=== PATIENT | female | born 1940 | race African-American/Black ===

== ENCOUNTER 2016-06-24 17:37 | Emergency (ER) | payer OTHER, MEDICARE ==
[~2016-06-24] VITALS: Ht 160 cm; Wt 63.0 kg
[~2016-06-24 17:37] MED LIST: ACET500T97 PO; ASPI-1035 PO; BENA40TA3 PO; CALC-4 PO; DICL100G5 TP; FERR-63 PO; METO5TAB69 PO; NIFE90TA34 PO; NYST15CR2 TP; OMEP20CA4 PO; PATAODR EACHEYE; PRAV20TA57 PO; TIZA4TAB4 PO
[2016-06-24 17:57] LABS: HEMATOCRIT. 31.8 % (36.0-48.0); HEMOGLOBIN. 10.6 g/dL (12.0-16.0); MEAN CORPUSCULAR HEMOGLOBIN 27.8 pg (28.0-32.0); MEAN CORPUSCULAR HGB CONC 33.3 g/dL (31.0-37.0); MEAN CORPUSCULAR VOLUME 83.6 fL (81.0-99.0); MEAN PLATELET VOLUME 8.5 fl (7.4-10.4); PLATELET 174 x1000/uL (130-400); RED CELL DISTRIBUTION WIDTH 13.7 % (11.6-14.6); WHITE BLOOD COUNT 6.1 x1000/uL (4.5-11.0)
[2016-06-24 17:58] LABS: DIFFERENTIAL COMMENT 1
[2016-06-24 18:07] LABS: ANION GAP 13; CALCIUM 9.2 mg/dL (8.5-10.1); CARBON DIOXIDE 27 mEq/L (21-32); CHLORIDE 105 mEq/L (98-107); INDEX HEMOLYSI 1 (1-3); INDEX ICTERIC 1 (1-4); INDEX LIPEMIC 1 (1-3); UREA NITROGEN BLOOD 19 mg/dL (7-21)
[2016-06-24 18:11] LABS: eGFR > 60 mL/min (>60)
[2016-06-24 18:13] LABS: NT PRO B-TYPE NATRIURETIC PEP 474 pg/mL (5-125); TROPONIN I 0.08 ng/mL (0.00-0.04)
[2016-06-24 18:14] LABS: PROTHROMBIN TIME 10.3 sec
[2016-06-24 18:29] LABS: ANISOCYTOSIS 1+; HYPOCHROMASIA 1+; PLATELET ESTIMATE NORMAL
[2016-06-24 18:42] LABS: CLARITY URINE CLEAR (CLEAR); COLOR URINE YELLOW (YELLOW); GLUCOSE URINE NEGATIVE (NEGATIVE); KETONES URINE NEGATIVE (NEGATIVE); LEUKOCYTE ESTERASE URINE 2+ (NEGATIVE); NITRITE URINE NEGATIVE (NEGATIVE); OCCULT BLOOD URINE 1+ (NEGATIVE); PH URINE 7.5 (4.5-8.0); PROTEIN URINE NEGATIVE (NEGATIVE); SPECIFIC GRAVITY URINE 1.009 (1.005-1.030); UROBILINOGEN URINE 0.2 E.U./dL (0.2-1.0)
[2016-06-24 18:48] LABS: *AMPHETAMINES SCREEN URINE NEGATIVE (NEGATIVE); *BARBITURATES SCREEN URINE NEGATIVE (NEGATIVE); *BENZODIAZEPINES SCREEN URINE NEGATIVE (NEGATIVE); *COCAINE SCREEN URINE NEGATIVE (NEGATIVE); CANNABINOID URINE SCREEN NEGATIVE (NEGATIVE); ECSTASY MDMA SCREEN URINE NEGATIVE (NEGATIVE); METHADONE URINE SCREEN NEGATIVE (NEGATIVE); OPIATES URINE SCREEN NEGATIVE (NEGATIVE); PHENCYCLIDINE URINE SCREEN NEGATIVE (NEGATIVE)
[2016-06-24 19:00] LABS: BACTERIA URINE 1+; SQUAMOUS EPITHELIAL CELL URINE RARE /lpf (RARE/1+)
[2016-06-24 19:01] LABS: RBC URINE 0-2 /hpf (0-2); WBC URINE 15-25 /hpf (0-2)
[2016-06-24 19:05] VITALS: BP 160/76
== END 2016-06-24 21:30 | disposition home or self-care (01) ==
LOC: ER 17:38
DX: T50.905A Adverse effect of unspecified drugs, medicaments and biological substances, initial encounter (principal); R31.9 Hematuria, unspecified; R07.9 Chest pain, unspecified; K21.9 Gastro-esophageal reflux disease without esophagitis; I10 Essential (primary) hypertension; Z79.82 Long term (current) use of aspirin; Z98.890 Other specified postprocedural states
CPT/HCPCS: 36415; 71010; 80048; 80305; 81001; 83880; 84484; 85025; 85610; 93005; 99285

== ENCOUNTER 2017-12-21 16:17 | Inpatient (IN) | payer MEDICARE ==
[~2017-12-21] VITALS: Ht 170.2 cm; Wt 75.3 kg
[~2017-12-21 16:17] MED LIST changes: -ASPI-1035 PO; +ASPI-1159 PO; -BENA40TA3 PO; +BENA40TA9 PO; +CLOP75TA16 PO; +DICL100G16 TP; -DICL100G5 TP
[2017-12-21] MEDS ORDERED: SODIUM CHLORIDE 0.9% 1,000 ML IV ONE (18:04)
[2017-12-21 19:43] LABS: HEMATOCRIT. 21.7 % (36.0-48.0); HEMOGLOBIN. 7.1 g/dL (12.0-16.0); MEAN CORPUSCULAR HEMOGLOBIN 29.3 pg (28.0-32.0); MEAN CORPUSCULAR VOLUME 89.7 fL (81.0-99.0); MEAN PLATELET VOLUME 8.2 fl (7.4-10.4); PLATELET 208 x1000/uL (130-400); RED BLOOD CELL COUNT 2.42 mill/uL (4.2-5.4); RED CELL DISTRIBUTION WIDTH 16.5 % (11.6-14.6)
[2017-12-21 19:47] LABS: CHLORIDE 112 mEq/L (98-107)
[2017-12-21 20:44] LABS: CLARITY URINE CLEAR (CLEAR); COLOR URINE YELLOW (YELLOW); KETONES URINE NEGATIVE (NEGATIVE); LEUKOCYTE ESTERASE URINE 1+ (NEGATIVE); NITRITE URINE POSITIVE (NEGATIVE); OCCULT BLOOD URINE NEGATIVE (NEGATIVE); PH URINE 7.5 (4.5-8.0); PROTEIN URINE NEGATIVE (NEGATIVE); SPECIFIC GRAVITY URINE 1.009 (1.005-1.030); UROBILINOGEN URINE 0.2 E.U./dL (0.2-1.0)
[2017-12-21] MEDS ORDERED: NITROGLYCERIN 0.4MG TABLET SL SL PRN (21:00)
[2017-12-21] MEDS ORDERED: TRAMADOL 50MG TABLET PO PRN (21:00)
[2017-12-21] MEDS ORDERED: GUAIFENESIN 200MG/10ML SUGAR FREE UDC PO PRN (21:00)
[2017-12-21] MEDS ORDERED: CLONIDINE 0.1MG TABLET PO PRN (21:00)
[2017-12-21] MEDS ORDERED: IPRATROPIUM/ALBUTEROL 0.5-3(2.5)MG/3ML NEB INH PRN (21:00)
[2017-12-21] MEDS ORDERED: ONDANSETRON HCL 4MG/2ML INJ IV PRN (21:00)
[2017-12-21] MEDS ORDERED: ZOLPIDEM TARTRATE 5MG TABLET PO PRN (21:00)
[2017-12-21] MEDS ORDERED: MORPHINE SULFATE 2 MG/ML CPJ (NOT FOR IM USE) IV PRN (21:00)
[2017-12-21] MEDS ORDERED: ACETAMINOPHEN 325MG TABLET PO PRN (21:00)
[2017-12-21] MEDS ORDERED: MAGNESIUM/ALUMINUM HYDROXIDE/SIMETHICONE 30ML UDC PO PRN (21:00)
[2017-12-21 21:09] LABS: PLATELET ESTIMATE NORMAL
[2017-12-21 21:55] LABS: VITAMIN B12 SERUM 414 pg/mL (211-911)
[2017-12-21 22:21] LABS: FOLIC ACID (FOLATE) SERUM > 20.00 ng/mL (>5.38)
[2017-12-21] MEDS ORDERED: IOHEXOL-300 100 ML BOTTLE ONE (22:42)
[2017-12-22] VITALS (7 sets, daily range): BP systolic 140–166; BP diastolic 62–75
[2017-12-22] MEDS ORDERED: PANT40TA4 PO (03:02)
[2017-12-22] MEDS ORDERED: LOSA50TA20 PO (03:02)
[2017-12-22] MEDS ORDERED: MULT-1146 MT (03:03)
[2017-12-22] MEDS ORDERED: [UNRECOGNIZED DRUG - OTHER] (03:07)
[2017-12-22] MEDS: DEXT 5%/0.45% NACL 1000ML 1,000 ML IV SCH ×2 (03:56→21:10)
[2017-12-22] MEDS ORDERED: PANTOPRAZOLE 80 MG in SODIUM CHLORIDE 0.9% 100 ML IV SCH (04:00)
[2017-12-22] MEDS: PANTOPRAZOLE 80 MG in SODIUM CHLORIDE 0.9% 100 ML IV SCH ×2 (04:57→16:21)
[2017-12-22] MEDS ORDERED: CEFTRIAXONE 1 G PREMIX 50 ML IV SCH (09:00)
[2017-12-22] MEDS: CEFTRIAXONE 1 G PREMIX 50 ML IV SCH (09:07)
[2017-12-22] MEDS ORDERED: HYDROMORPHONE HCL/PF 2MG/ML CPJ IV PRN (11:30)
[2017-12-22 11:43] LABS: BASOPHILS % 0.4 % (0.0-2.0); EOSINOPHILS % 0.5 % (0.0-5.0); HEMATOCRIT. 26.3 % (36.0-48.0); HEMOGLOBIN. 8.8 g/dL (12.0-16.0); LYMPHOCYTES % 19.9 % (20.0-50.0); MEAN CORPUSCULAR HEMOGLOBIN 29.7 pg (28.0-32.0); MEAN CORPUSCULAR VOLUME 88.5 fL (81.0-99.0); MEAN PLATELET VOLUME 8.3 fl (7.4-10.4); MONOCYTES % 13.5 % (2.0-8.0); NEUTROPHILS % 65.7 % (40.0-76.0); PLATELET 220 x1000/uL (130-400); RED BLOOD CELL COUNT 2.97 mill/uL (4.2-5.4); RED CELL DISTRIBUTION WIDTH 16.9 % (11.6-14.6)
[2017-12-22 11:55] LABS: CHLORIDE 110 mEq/L (98-107)
[2017-12-22 12:05] LABS: TOTAL IRON BINDING CAPACITY 320 ug/dL (250-450)
[2017-12-22] MEDS ORDERED: SORBITOL 70% SOLN 30ML PO NR ×2 (16:23→18:15)
[2017-12-22] MEDS: LOSARTAN POTASSIUM 25 MG TABLET PO SCH ×2 (16:25→21:09)
[2017-12-22] MEDS: NIFEDIPINE XL 30MG TAB PO SCH ×2 (16:25→21:09)
[2017-12-22] MEDS: FERROUS SULFATE 325MG TABLET PO SCH (18:12)
[2017-12-22] MEDS ORDERED: SORBITOL 70% SOLN 30ML PO SCH (22:00)
[2017-12-23] VITALS: BP 150/59
[2017-12-23] MEDS: PANTOPRAZOLE 80 MG in SODIUM CHLORIDE 0.9% 100 ML IV SCH ×3 (01:06→20:24)
[2017-12-23 04:00] VITALS: BP 123/53
[2017-12-23] MEDS: CEFTRIAXONE 1 G PREMIX 50 ML IV SCH (05:32)
[2017-12-23 06:31] LABS: BASOPHILS % 0.4 % (0.0-2.0); EOSINOPHILS % 0.1 % (0.0-5.0); HEMATOCRIT. 28.2 % (36.0-48.0); HEMOGLOBIN. 9.3 g/dL (12.0-16.0); LYMPHOCYTES % 16.5 % (20.0-50.0); MEAN CORPUSCULAR HEMOGLOBIN 29.6 pg (28.0-32.0); MEAN CORPUSCULAR VOLUME 89.6 fL (81.0-99.0); MEAN PLATELET VOLUME 8.4 fl (7.4-10.4); MONOCYTES % 9.7 % (2.0-8.0); NEUTROPHILS % 73.3 % (40.0-76.0); PLATELET 235 x1000/uL (130-400); RED BLOOD CELL COUNT 3.14 mill/uL (4.2-5.4); RED CELL DISTRIBUTION WIDTH 16.9 % (11.6-14.6)
[2017-12-23 06:42] LABS: CHLORIDE 116 mEq/L (98-107)
[2017-12-23] MEDS: FERROUS SULFATE 325MG TABLET PO SCH ×3 (06:45→17:30)
[2017-12-23 08:00] VITALS: BP 130/60
[2017-12-23] MEDS: NIFEDIPINE XL 30MG TAB PO SCH ×2 (08:57→20:25)
[2017-12-23] MEDS: DOCUSATE SODIUM 250MG CAPSULE PO SCH (08:57)
[2017-12-23] MEDS: LOSARTAN POTASSIUM 25 MG TABLET PO SCH ×2 (08:57→20:25)
[2017-12-23] MEDS ORDERED: FENTANYL CITRATE/PF 50MCG/ML 2ML VIAL IV PRN (09:45)
[2017-12-23] MEDS ORDERED: PROPOFOL 200MG/20ML VIAL IV ONE (10:07)
[2017-12-23] MEDS ORDERED: LIDOCAINE HCL/PF 1% 10 MG/ML 5ML VIAL ONE (10:07)
[2017-12-23 12:00] VITALS: BP 128/65
[2017-12-23] MEDS ORDERED: SIMETHICONE 40 MG/0.6 ML 30ML ONE (15:49)
[2017-12-23] MEDS ORDERED: SODIUM CHLORIDE 0.9% 10ML VIAL ONE (15:49)
[2017-12-23 16:00] VITALS: BP 146/53
[2017-12-23 20:00] VITALS: BP 121/52
[2017-12-23] MEDS: DEXT 5%/0.45% NACL 1000ML 1,000 ML IV SCH (20:25)
[2017-12-24] VITALS: BP 148/54
[2017-12-24 04:00] VITALS: BP 136/54
[2017-12-24] MEDS: PANTOPRAZOLE 80 MG in SODIUM CHLORIDE 0.9% 100 ML IV SCH (06:14)
[2017-12-24] MEDS: CEFTRIAXONE 1 G PREMIX 50 ML IV SCH (06:15)
[2017-12-24] MEDS: DEXT 5%/0.45% NACL 1000ML 1,000 ML IV SCH (06:22)
[2017-12-24 08:00] VITALS: BP 128/68
[2017-12-24] MEDS: NIFEDIPINE XL 30MG TAB PO SCH ×2 (08:05→08:40)
[2017-12-24] MEDS: FERROUS SULFATE 325MG TABLET PO SCH ×2 (08:05→11:42)
[2017-12-24] MEDS: DOCUSATE SODIUM 250MG CAPSULE PO SCH (08:05)
[2017-12-24] MEDS: LOSARTAN POTASSIUM 25 MG TABLET PO SCH ×2 (08:05→08:40)
[2017-12-24] MEDS ORDERED: ASPIRIN 81MG TABLET PO SCH (09:00)
[2017-12-24 11:34] VITALS: BP 123/63
[2017-12-24 12:00] VITALS: BP 123/63
== END 2017-12-24 12:30 | disposition home or self-care (01) | DRG 378 ==
LOC: ER 16:17 → SUPCPDRO 20:40 → 5WST 20:42 → ENRESERV 21:40
PROVIDERS: ADMIT Internal Medicine Geriatric Medicine; ATTEND Internal Medicine Geriatric Medicine
PROC: 30233N1 Transfusion of Nonautologous Red Blood Cells into Peripheral Vein, Percutaneous Approach (ICD-10-PCS; 2017-12-21)
PROC: 0DBL8ZZ Excision of Transverse Colon, Via Natural or Artificial Opening Endoscopic (ICD-10-PCS; principal; 2017-12-23 10:30)
DX: K92.2 Gastrointestinal hemorrhage, unspecified (principal); E44.0 Moderate protein-calorie malnutrition; D62 Acute posthemorrhagic anemia; N39.0 Urinary tract infection, site not specified; E87.1 Hypo-osmolality and hyponatremia; J84.9 Interstitial pulmonary disease, unspecified; E87.0 Hyperosmolality and hypernatremia; G82.20 Paraplegia, unspecified; J98.11 Atelectasis; D12.3 Benign neoplasm of transverse colon; J44.9 Chronic obstructive pulmonary disease, unspecified; D63.8 Anemia in other chronic diseases classified elsewhere; I10 Essential (primary) hypertension; E11.51 Type 2 diabetes mellitus with diabetic peripheral angiopathy without gangrene; E78.00 Pure hypercholesterolemia, unspecified; I25.10 Atherosclerotic heart disease of native coronary artery without angina pectoris; I35.0 Nonrheumatic aortic (valve) stenosis; I87.2 Venous insufficiency (chronic) (peripheral); K21.9 Gastro-esophageal reflux disease without esophagitis; K22.8 Other specified diseases of esophagus; R13.10 Dysphagia, unspecified; Z95.5 Presence of coronary angioplasty implant and graft; Z68.26 Body mass index [BMI] 26.0-26.9, adult
CPT/HCPCS: 36415; 71045; 74177; 80061; 82270; 82607; 82746; 82962; 83036; 83540; 83550; 83735; 83880; 84484; 85379; 86850; 86900; 86920; 88305; 93005; 93970; 96360; 96361; 97116; 97162; 99285; A4216; A6261; C9113; J0696; J2405; J2704; J3490; J7030; J7050; P9016; Q9967

== ENCOUNTER → 2018-09-03 | Outpatient (CLI) | payer MEDICARE ==
[~2018-09-03] MED LIST changes: +ACET500T95 PO; -ACET500T97 PO; -ASPI-1159 PO; +ASPI-1393 PO; -BENA40TA9 PO; -CLOP75TA16 PO; +CLOP75TA4 PO; -DICL100G16 TP; +LIDOCAINE HCL 1% 20ML VIAL (Pyxis) INJ ONE; +LOSA50TA41 PO; -METO5TAB69 PO; +MULT-1146 MT; -NYST15CR2 TP; -OMEP20CA4 PO; +PANT40TA4 PO; -PATAODR EACHEYE; +SODIUM BICARBONATE 4% (2.4MEQ) 5ML VIAL IV ONE; -TIZA4TAB4 PO; +[UNRECOGNIZED DRUG - OTHER]
== END | disposition home or self-care (01) ==
LOC: RAD 12:37
PROVIDERS: ATTEND Specialist
DX: E04.1 Nontoxic single thyroid nodule (principal); Z79.82 Long term (current) use of aspirin; Z79.899 Other long term (current) drug therapy; Z88.5 Allergy status to narcotic agent; Z83.3 Family history of diabetes mellitus; Z80.8 Family history of malignant neoplasm of other organs or systems
CPT/HCPCS: 10005; 88172; 88173; J3490

== ENCOUNTER 2018-12-30 18:36 | Inpatient (IN) | payer MEDICARE ==
[~2018-12-30] VITALS: Ht 167.6 cm; Wt 81.0 kg
[~2018-12-30 18:36] MED LIST changes: -LIDOCAINE HCL 1% 20ML VIAL (Pyxis) INJ ONE; -SODIUM BICARBONATE 4% (2.4MEQ) 5ML VIAL IV ONE
[2018-12-30] MEDS ORDERED: ONDANSETRON HCL 4MG/2ML INJ IV STA (18:48)
[2018-12-30] MEDS ORDERED: LEVOFLOXACIN 750MG PREMIX 150 ML IV ONE (19:00)
[2018-12-30] MEDS ORDERED: SODIUM CHLORIDE 0.9% 1000ML BAG (SEPSIS BOLUS) IV ONE (19:00)
[2018-12-30 19:09] LABS: BASOPHILS % 0.1 % (0.0-2.0); EOSINOPHILS % 2.8 % (0.0-5.0); HEMATOCRIT. 31.1 % (36.0-48.0); HEMOGLOBIN. 10.5 g/dL (12.0-16.0); LYMPHOCYTES % 7.9 % (20.0-50.0); MEAN CORPUSCULAR HEMOGLOBIN 27.8 pg (28.0-32.0); MEAN CORPUSCULAR VOLUME 82.6 fL (81.0-99.0); MEAN PLATELET VOLUME 9.7 fl (7.4-10.4); MONOCYTES % 5.9 % (2.0-8.0); NEUTROPHILS % 83.3 % (40.0-76.0); PLATELET 120 x1000/uL (130-400); PROTHROMBIN TIME 10.8 sec (9.6-11.0); RED BLOOD CELL COUNT 3.76 mill/uL (4.2-5.4); RED CELL DISTRIBUTION WIDTH 15.8 % (11.6-14.6)
[2018-12-30 19:11] LABS: CHLORIDE 109 mEq/L (98-107)
[2018-12-30] MEDS ORDERED: HEPARIN 25,000 UNITS PREMIX 500 ML IV ONE (20:00)
[2018-12-30] MEDS ORDERED: HEPARIN 5000 UNITS/ML VIAL IV ONE (20:00)
[2018-12-30] MEDS ORDERED: PIPERACILLIN/TAZ 3.375G PREMIX 50 ML IV SCH (20:45)
[2018-12-30] MEDS ORDERED: IPRATROPIUM/ALBUTEROL 0.5-3(2.5)MG/3ML NEB NEB PRN (20:45)
[2018-12-30] MEDS ORDERED: ONDANSETRON HCL 4MG/2ML INJ IV PRN (20:45)
[2018-12-30] MEDS ORDERED: DOCUSATE SODIUM 100MG CAPSULE PO PRN (20:45)
[2018-12-30] MEDS ORDERED: HEPARIN 5000 UNITS/ML VIAL IV NR (20:45)
[2018-12-30] MEDS ORDERED: MAGNESIUM/ALUMINUM HYDROXIDE/SIMETHICONE 30ML UDC PO PRN (20:45)
[2018-12-30] MEDS ORDERED: NITROGLYCERIN 0.4MG TABLET SL SL PRN (20:45)
[2018-12-30] MEDS ORDERED: GUAIFENESIN 200MG/10ML SUGAR FREE UDC PO PRN (20:45)
[2018-12-30] MEDS ORDERED: ACETAMINOPHEN 325MG TABLET PO PRN (20:45)
[2018-12-30] MEDS ORDERED: CLONIDINE 0.1MG TABLET PO PRN (20:45)
[2018-12-30] MEDS ORDERED: FAMOTIDINE 20MG TABLET PO SCH (21:00)
[2018-12-30 21:42] LABS: FOLIC ACID (FOLATE) SERUM > 20.00 ng/mL (>5.38); VITAMIN B12 SERUM 912 pg/mL (211-911)
[2018-12-30] MEDS ORDERED: TRAMADOL 50MG TABLET PO PRN (21:52)
[2018-12-30] MEDS ORDERED: ZOLPIDEM TARTRATE 5MG TABLET PO PRN (22:00)
[2018-12-30] MEDS ORDERED: METOPROLOL TARTRATE 25MG TABLET PO NR (22:18)
[2018-12-30 23:00] VITALS: BP 148/57
[2018-12-31] VITALS (53 sets, daily range): BP systolic 75–157; BP diastolic 22–93
[2018-12-31] MEDS ORDERED: DILTIAZEM HCL 60MG TABLET PO SCH
[2018-12-31 00:07] LABS: CREATINE KINASE MB FRACTION 7.1 ng/mL (0.5-3.6)
[2018-12-31] MEDS ORDERED: SODIUM CHLORIDE 0.9% 1,000 ML IV SCH (00:40)
[2018-12-31 02:16] LABS: HEMATOCRIT. 29.9 % (36.0-48.0); HEMOGLOBIN. 9.8 g/dL (12.0-16.0); MEAN CORPUSCULAR HEMOGLOBIN 27.5 pg (28.0-32.0); MEAN CORPUSCULAR VOLUME 84.2 fL (81.0-99.0); MEAN PLATELET VOLUME 10.2 fl (7.4-10.4); PLATELET 96 x1000/uL (130-400); RED BLOOD CELL COUNT 3.56 mill/uL (4.2-5.4); RED CELL DISTRIBUTION WIDTH 15.4 % (11.6-14.6)
[2018-12-31 02:20] LABS: CHLORIDE 111 mEq/L (98-107)
[2018-12-31 02:26] LABS: LDL CHOLESTEROL 36 mg/dL (5-100)
[2018-12-31 02:28] LABS: HDL CHOLESTEROL 14 mg/dL (40-59)
[2018-12-31 02:32] LABS: INR 1.1; PROTHROMBIN TIME 11.5 sec (9.6-11.0)
[2018-12-31 02:33] LABS: CREATINE KINASE 357 IU/L (26-192); CREATINE KINASE MB FRACTION 5.2 ng/mL (0.5-3.6)
[2018-12-31 02:54] LABS: PLATELET ESTIMATE DECREASED
[2018-12-31 03:04] LABS: PARTIAL THROMBOPLASTIN TIME 81.8 sec (23.4-31.0)
[2018-12-31 03:05] LABS: BG BASE EXCESS -14.9 mmol/L (-2.0-2.0); BG CARBOXYHEMOGLOBIN 0.3 % (0.5-1.5); BG DEOXYHEMOGLOBIN 5.9 % (0.0-5.0); BG FRACTION INSPIRED OXYGEN 21; BG HCO3 ACT 10.1 mmol/L (22.0-26.0); BG METHEMOGLOBIN 0.3 % (0.0-1.5); BG OXYGEN SATURATION 94.1 % (92.0-98.5); BG OXYHEMOGLOBIN 93.5 % (94.0-97.0); BG PCO2 21.9 mmHg (35.0-45.0); BG PH 7.283 (7.350-7.450); BG PO2 82.6 mmHg (75.0-100.0); BG SAMPLE SITE RIGHT RADIAL; BG TOTAL HEMOGLOBIN 9.7 g/dL (12.0-18.0); BG VENT MODE ROOM AIR
[2018-12-31] MEDS: MORPHINE SULFATE 2 MG/ML CPJ (NOT FOR IM USE) IV PRN ×2 (03:49→22:08)
[2018-12-31] MEDS ORDERED: VANCOMYCIN 1500MG in DEXTROSE 5% WATER 250ML IV SCH (04:00)
[2018-12-31] MEDS ORDERED: PIPERACILLIN/TAZOBACTAM 2.25 G in DEXTROSE 5% WATER 50 ML IV SCH (04:00)
[2018-12-31] MEDS ORDERED: SODIUM CHLORIDE 0.9% 1,000 ML IV ONE (04:00)
[2018-12-31 05:12] LABS: CHLORIDE 113 mEq/L (98-107); HEMATOCRIT. 30.5 % (36.0-48.0); HEMOGLOBIN. 9.7 g/dL (12.0-16.0); MEAN CORPUSCULAR HEMOGLOBIN 27.5 pg (28.0-32.0); MEAN CORPUSCULAR VOLUME 86.7 fL (81.0-99.0); MEAN PLATELET VOLUME 10.3 fl (7.4-10.4); PLATELET 84 x1000/uL (130-400); RED BLOOD CELL COUNT 3.52 mill/uL (4.2-5.4); RED CELL DISTRIBUTION WIDTH 16.2 % (11.6-14.6)
[2018-12-31 05:32] LABS: T4 FREE 1.11 ng/dL (0.76-1.46)
[2018-12-31 05:35] LABS: CREATINE KINASE 318 IU/L (26-192)
[2018-12-31 05:40] LABS: CREATINE KINASE MB FRACTION 4.9 ng/mL (0.5-3.6)
[2018-12-31] MEDS ORDERED: ENOXAPARIN 80MG/0.8ML SYR SUBCUT SCH (06:00)
[2018-12-31] MEDS: SUCRALFATE 1 G/10 ML UDC PO SCH ×4 (06:30→21:11)
[2018-12-31] MEDS ORDERED: MEROPENEM 1,000 MG in SODIUM CHLORIDE 0.9% 100 ML IV SCH (08:00)
[2018-12-31] MEDS ORDERED: LISI40TA4 MT (08:57)
[2018-12-31] MEDS ORDERED: DYZ MT (08:57)
[2018-12-31] MEDS ORDERED: PROP1DRO2 OP (08:57)
[2018-12-31] MEDS ORDERED: FAMO-135 MT (08:57)
[2018-12-31] MEDS ORDERED: METO5TAB69 MT (08:57)
[2018-12-31] MEDS ORDERED: ASPIRIN 325MG EC TABLET PO SCH (09:00)
[2018-12-31] MEDS: FAMOTIDINE 20MG TABLET PO SCH (09:00)
[2018-12-31] MEDS: ASCORBIC ACID 500 MG TABLET PO SCH ×2 (09:00→21:12)
[2018-12-31] MEDS: METOPROLOL TARTRATE 25MG TABLET PO SCH ×2 (09:00→21:12)
[2018-12-31] MEDS ORDERED: CLOPIDOGREL 75MG TABLET PO SCH (09:00)
[2018-12-31] MEDS: ZINC SULFATE 220 MG ( 50 ) CAPSULE PO SCH (09:00)
[2018-12-31 10:41] LABS: PLATELET ESTIMATE DECREASED
[2018-12-31] MEDS: MEROPENEM 500MG in NORMAL SALINE 50ML IV SCH (10:52)
[2018-12-31] MEDS ORDERED: SODIUM BICARBONATE 8.4% 1 MEQ/ML 50ML SYR IV SCH (11:00)
[2018-12-31] MEDS ORDERED: SODIUM BICARBONATE 100 MEQ in SODIUM CHLORIDE 0.45% 900 ML IV SCH (11:30)
[2018-12-31 14:14] LABS: BG BASE EXCESS -6.1 mmol/L (-2.0-2.0); BG CARBOXYHEMOGLOBIN 0.3 % (0.5-1.5); BG DEOXYHEMOGLOBIN 8.2 % (0.0-5.0); BG HCO3 ACT 18.5 mmol/L (22.0-26.0); BG METHEMOGLOBIN 0.3 % (0.0-1.5); BG OXYGEN SATURATION 91.8 % (92.0-98.5); BG OXYHEMOGLOBIN 91.2 % (94.0-97.0); BG PCO2 33.4 mmHg (35.0-45.0); BG PH 7.362 (7.350-7.450); BG PO2 66.4 mmHg (75.0-100.0); BG SAMPLE SITE RIGHT BRACHIAL; BG VENT MODE ROOM AIR
[2018-12-31 14:23] LABS: CLARITY URINE TURBID (CLEAR); COLOR URINE YELLOW (YELLOW); KETONES URINE NEGATIVE (NEGATIVE); LEUKOCYTE ESTERASE URINE 3+ (NEGATIVE); NITRITE URINE NEGATIVE (NEGATIVE); OCCULT BLOOD URINE 3+ (NEGATIVE); PROTEIN URINE 2+ (NEGATIVE); SPECIFIC GRAVITY URINE 1.009 (1.005-1.030)
[2018-12-31 15:11] LABS: *AMPHETAMINES SCREEN URINE NEGATIVE (NEGATIVE); *BARBITURATES SCREEN URINE NEGATIVE (NEGATIVE); *BENZODIAZEPINES SCREEN URINE NEGATIVE (NEGATIVE); *COCAINE SCREEN URINE NEGATIVE (NEGATIVE); CANNABINOID URINE SCREEN NEGATIVE (NEGATIVE)
[2018-12-31 15:12] LABS: METHADONE URINE SCREEN NEGATIVE (NEGATIVE); OPIATES URINE SCREEN PRESUMTIVE POSITIVE (NEGATIVE); PHENCYCLIDINE URINE SCREEN NEGATIVE (NEGATIVE)
[2018-12-31 16:48] LABS: CREATINE KINASE 1052 IU/L (26-192)
[2018-12-31] MEDS ORDERED: MAGNESIUM 4 G PREMIX 100 ML IV NR (21:00)
[2018-12-31] MEDS: ATORVASTATIN CALCIUM 10MG TABLET PO SCH (21:11)
[2019-01-01] VITALS (27 sets, daily range): BP systolic 108–153; BP diastolic 43–91
[2019-01-01 05:00] LABS: HEMATOCRIT. 28.2 % (36.0-48.0); HEMOGLOBIN. 9.5 g/dL (12.0-16.0); MEAN CORPUSCULAR HEMOGLOBIN 27.8 pg (28.0-32.0); MEAN CORPUSCULAR VOLUME 82.2 fL (81.0-99.0); MEAN PLATELET VOLUME 10.1 fl (7.4-10.4); PLATELET 83 x1000/uL (130-400); RED BLOOD CELL COUNT 3.43 mill/uL (4.2-5.4); RED CELL DISTRIBUTION WIDTH 15.9 % (11.6-14.6)
[2019-01-01] MEDS: SUCRALFATE 1 G/10 ML UDC PO SCH ×4 (05:57→21:42)
[2019-01-01] MEDS ORDERED: POTASSIUM CHLORIDE 20MEQ TABLET SR PO SCH (07:30)
[2019-01-01] MEDS: SODIUM CHLORIDE 0.45% 1,000 ML IV SCH (07:36)
[2019-01-01] MEDS: ASCORBIC ACID 500 MG TABLET PO SCH ×2 (08:29→21:43)
[2019-01-01] MEDS: ZINC SULFATE 220 MG ( 50 ) CAPSULE PO SCH (08:29)
[2019-01-01] MEDS: FAMOTIDINE 20MG TABLET PO SCH (08:29)
[2019-01-01] MEDS: MEROPENEM 500MG in NORMAL SALINE 50ML IV SCH (08:30)
[2019-01-01] MEDS: METOPROLOL TARTRATE 25MG TABLET PO SCH ×2 (08:30→21:43)
[2019-01-01] MEDS: CITRIC ACID/SODIUM CITRATE SOLN 30ML UDC PO SCH ×2 (08:30→16:29)
[2019-01-01] MEDS: MORPHINE SULFATE 2 MG/ML CPJ (NOT FOR IM USE) IV PRN (09:34)
[2019-01-01 10:31] LABS: PLATELET ESTIMATE DECREASED
[2019-01-01] MEDS: ASPIRIN 81MG EC TABLET PO SCH (10:34)
[2019-01-01] MEDS: NITROGLYCERIN OINT 1GM/INCH UDPKT TD SCH ×2 (13:18→21:43)
[2019-01-01] MEDS: ATORVASTATIN CALCIUM 10MG TABLET PO SCH (21:43)
[2019-01-02] VITALS: BP 147/78
[2019-01-02 04:00] VITALS: BP 183/96
[2019-01-02] MEDS ORDERED: VANCOMYCIN 1 G PREMIX 200 ML IV SCH (04:00)
[2019-01-02] MEDS: SODIUM CHLORIDE 0.45% 1,000 ML IV SCH (04:22)
[2019-01-02] MEDS: NITROGLYCERIN OINT 1GM/INCH UDPKT TD SCH ×3 (06:14→21:43)
[2019-01-02] MEDS: SUCRALFATE 1 G/10 ML UDC PO SCH ×4 (06:14→21:28)
[2019-01-02 07:20] LABS: HEMATOCRIT. 29.8 % (36.0-48.0); HEMOGLOBIN. 10.1 g/dL (12.0-16.0); MEAN CORPUSCULAR HEMOGLOBIN 27.7 pg (28.0-32.0); MEAN CORPUSCULAR VOLUME 81.9 fL (81.0-99.0); PLATELET 98 x1000/uL (130-400); RED BLOOD CELL COUNT 3.64 mill/uL (4.2-5.4); RED CELL DISTRIBUTION WIDTH 15.7 % (11.6-14.6)
[2019-01-02 08:00] VITALS: BP 177/99
[2019-01-02] MEDS: CITRIC ACID/SODIUM CITRATE SOLN 30ML UDC PO SCH (08:26)
[2019-01-02] MEDS: MEROPENEM 500MG in NORMAL SALINE 50ML IV SCH (08:26)
[2019-01-02] MEDS: ZINC SULFATE 220 MG ( 50 ) CAPSULE PO SCH (08:27)
[2019-01-02] MEDS: ASCORBIC ACID 500 MG TABLET PO SCH ×2 (08:27→21:29)
[2019-01-02] MEDS: METOPROLOL TARTRATE 25MG TABLET PO SCH ×2 (08:27→21:28)
[2019-01-02] MEDS: FAMOTIDINE 20MG TABLET PO SCH (08:27)
[2019-01-02] MEDS: ASPIRIN 81MG EC TABLET PO SCH (08:27)
[2019-01-02 08:43] LABS: CHLORIDE 111 mEq/L (98-107)
[2019-01-02] MEDS ORDERED: ACETAMINOPHEN 500MG TABLET PO PRN (08:45)
[2019-01-02 08:51] LABS: PHOSPHORUS 2.2 mg/dL (2.5-4.9)
[2019-01-02 08:52] LABS: HDL CHOLESTEROL 10 mg/dL (40-59); LDL CHOLESTEROL 51 mg/dL (5-100)
[2019-01-02] MEDS ORDERED: NIFEDIPINE XL 90MG TAB PO SCH (09:00)
[2019-01-02] MEDS ORDERED: ASPIRIN 81MG EC TABLET PO SCH (09:00)
[2019-01-02 09:07] LABS: COMPLEMENT C3 106 mg/dL (82-167)
[2019-01-02] MEDS ORDERED: POTASSIUM CHLORIDE 20MEQ TABLET SR PO NR (10:45)
[2019-01-02] MEDS: CALCIUM CARBONATE/VITAMIN D3 500MG TABLET PO SCH ×2 (11:01→16:43)
[2019-01-02] MEDS: HYDRALAZINE HCL 25MG TABLET PO SCH ×3 (11:01→21:43)
[2019-01-02] MEDS: AMLODIPINE 5MG TABLET PO SCH ×2 (11:02→21:29)
[2019-01-02] MEDS: CLOPIDOGREL 75MG TABLET PO SCH (11:02)
[2019-01-02] MEDS: FERROUS SULFATE 325MG TABLET PO SCH ×2 (11:02→16:43)
[2019-01-02 11:46] LABS: PLATELET ESTIMATE DECREASED
[2019-01-02 12:10] VITALS: BP 156/83
[2019-01-02 13:09] LABS: ANTI-NUCLEAR ANTIBODIES DIRECT Positive (Negative)
[2019-01-02] MEDS: IPRATROPIUM/ALBUTEROL 0.5-3(2.5)MG/3ML NEB HHN SCH ×2 (14:44→20:00)
[2019-01-02 16:17] VITALS: BP 172/78
[2019-01-02 20:00] VITALS: BP 159/87
[2019-01-02] MEDS: ATORVASTATIN CALCIUM 10MG TABLET PO SCH (21:30)
[2019-01-03] VITALS (7 sets, daily range): BP systolic 136–156; BP diastolic 66–86
[2019-01-03] MEDS: SODIUM CHLORIDE 0.45% 1,000 ML IV SCH ×2 (00:49→10:06)
[2019-01-03] MEDS: IPRATROPIUM/ALBUTEROL 0.5-3(2.5)MG/3ML NEB HHN SCH ×4 (01:47→21:07)
[2019-01-03] MEDS: NITROGLYCERIN OINT 1GM/INCH UDPKT TD SCH ×3 (05:18→21:50)
[2019-01-03] MEDS: MORPHINE SULFATE 2 MG/ML CPJ (NOT FOR IM USE) IV PRN (05:19)
[2019-01-03] MEDS: HYDRALAZINE HCL 25MG TABLET PO SCH (05:19)
[2019-01-03] MEDS: SUCRALFATE 1 G/10 ML UDC PO SCH ×4 (06:22→20:43)
[2019-01-03 06:49] LABS: BASOPHILS % 0.3 % (0.0-2.0); EOSINOPHILS % 0.1 % (0.0-5.0); HEMATOCRIT. 30.4 % (36.0-48.0); HEMOGLOBIN. 10.3 g/dL (12.0-16.0); LYMPHOCYTES % 9.1 % (20.0-50.0); MEAN CORPUSCULAR HEMOGLOBIN 27.4 pg (28.0-32.0); MEAN CORPUSCULAR VOLUME 80.9 fL (81.0-99.0); MONOCYTES % 12.4 % (2.0-8.0); NEUTROPHILS % 78.1 % (40.0-76.0); PLATELET 103 x1000/uL (130-400); RED BLOOD CELL COUNT 3.75 mill/uL (4.2-5.4); RED CELL DISTRIBUTION WIDTH 15.6 % (11.6-14.6)
[2019-01-03] MEDS: FAMOTIDINE 20MG TABLET PO SCH (08:23)
[2019-01-03] MEDS: ASCORBIC ACID 500 MG TABLET PO SCH ×2 (08:23→20:44)
[2019-01-03] MEDS: MEROPENEM 500MG in NORMAL SALINE 50ML IV SCH (08:23)
[2019-01-03] MEDS: CLOPIDOGREL 75MG TABLET PO SCH (08:24)
[2019-01-03] MEDS: AMLODIPINE 5MG TABLET PO SCH ×2 (08:24→20:44)
[2019-01-03] MEDS: METOPROLOL TARTRATE 25MG TABLET PO SCH ×2 (08:24→20:44)
[2019-01-03] MEDS: ZINC SULFATE 220 MG ( 50 ) CAPSULE PO SCH (08:25)
[2019-01-03] MEDS: ASPIRIN 81MG EC TABLET PO SCH (08:25)
[2019-01-03] MEDS: CALCIUM CARBONATE/VITAMIN D3 500MG TABLET PO SCH ×2 (08:25→17:42)
[2019-01-03] MEDS: FERROUS SULFATE 325MG TABLET PO SCH ×2 (08:36→17:42)
[2019-01-03] MEDS ORDERED: LACTOBACILLUS GG CAPSULE PO SCH (10:00)
[2019-01-03] MEDS ORDERED: VANCOMYCIN 1 G PREMIX 200 ML IV SCH (11:00)
[2019-01-03] MEDS: HYDRALAZINE HCL 50MG TABLET PO SCH ×2 (14:41→21:50)
[2019-01-03] MEDS: ATORVASTATIN CALCIUM 10MG TABLET PO SCH (20:44)
[2019-01-04] MEDS ORDERED: NIFEDIPINE XL 90MG TAB PO SCH (12:30)
== END 2019-01-03 22:30 | DRG 871 ==
LOC: ER 18:36 → 5EST 20:50 → EDBEDREQ 20:52 → EDBEDREQTM 20:52 → ENRESERV 21:59 → 5EST 12-31 00:28 → MICUSO 12-31 01:30 → 8WST 01-01 14:25
PROVIDERS: ADMIT Internal Medicine Geriatric Medicine; ATTEND Internal Medicine Geriatric Medicine
DX: A41.50 Gram-negative sepsis, unspecified (principal); E43 Unspecified severe protein-calorie malnutrition; I21.4 Non-ST elevation (NSTEMI) myocardial infarction; E87.2 Acidosis; M62.82 Rhabdomyolysis; N39.0 Urinary tract infection, site not specified; I13.0 Hypertensive heart and chronic kidney disease with heart failure and stage 1 through stage 4 chronic kidney disease, or unspecified chronic kidney disease; I50.32 Chronic diastolic (congestive) heart failure; N17.9 Acute kidney failure, unspecified; E86.9 Volume depletion, unspecified; E83.51 Hypocalcemia; D64.9 Anemia, unspecified; N18.9 Chronic kidney disease, unspecified; D69.6 Thrombocytopenia, unspecified; B96.20 Unspecified Escherichia coli [E. coli] as the cause of diseases classified elsewhere; B96.89 Other specified bacterial agents as the cause of diseases classified elsewhere; D50.9 Iron deficiency anemia, unspecified; E78.00 Pure hypercholesterolemia, unspecified; E78.5 Hyperlipidemia, unspecified; E87.6 Hypokalemia; I08.0 Rheumatic disorders of both mitral and aortic valves; I25.10 Atherosclerotic heart disease of native coronary artery without angina pectoris; R73.03 Prediabetes; I73.9 Peripheral vascular disease, unspecified; M54.17 Radiculopathy, lumbosacral region; R29.6 Repeated falls; W18.39XA Other fall on same level, initial encounter; Y93.89 Activity, other specified; Y92.89 Other specified places as the place of occurrence of the external cause; Y99.8 Other external cause status; Z79.02 Long term (current) use of antithrombotics/antiplatelets; Z79.82 Long term (current) use of aspirin; Z86.73 Personal history of transient ischemic attack (TIA), and cerebral infarction without residual deficits; Z95.5 Presence of coronary angioplasty implant and graft; Z88.6 Allergy status to analgesic agent; Z79.899 Other long term (current) drug therapy; Z68.28 Body mass index [BMI] 28.0-28.9, adult
CPT/HCPCS: 36415; 36600; 71045; 76770; 80048; 80061; 80202; 80305; 81003; 82270; 82375; 82550; 82553; 82607; 82746; 82805; 83036; 83540; 83550; 83605; 83735; 84100; 84145; 84439; 84443; 84481; 84484; 85384; 86038; 86160; 87077; 87186; 87493; 87804; 92610; 93005; 93306; 93970; 94640; 96365; 96367; 96375; 97110; 97116; 97163; 97166; 97530; 99291; A6261; J1644; J1956; J2185; J2270; J2405; J2543; J3370; J3475; J3490; J7030; J7060; J7620; A4315